=== PATIENT | female | born 1950 | race Caucasian/White ===

== ENCOUNTER → 2017-05-21 | Outpatient (POV) | payer OTHER | LOC: OUTPT 00:01 | PROVIDERS: ATTEND Otolaryngology | DX: R42 Dizziness and giddiness (principal) | CPT/HCPCS: 92557; 92567 ==

== ENCOUNTER 2017-08-22 07:13 | Outpatient (CLI) ==
--- NOTE | 2017-08-25 11:47 | ECHO2D ---
Date of Exam: 08/22/17 Ordering Physician: RODOLFO ORDONEZ Room #: OP Reason for Echo: DYSPNEA M-Mode Normal Adult Results LV Dimensions Normal Adult Results AoV Opening excursions >1.6 >1.6 LVEDD-base- 3.5-5.8 3.2 Ao root dimensions 2.0-3.7 3.4 LVESD-base- 3.1-4.6 L. Atrium dimensions 1.9-3.8 4.0 Post. Wall thickness 0.8-1.1 1.2 IV septum (thickness) 0.7-1.2 1.2 Post. Wall excursion 0.72-1.3 NORMAL Septal motion NORMAL Systolic motion R. Ventricular cavity 1.5-2.0 3.0 LVEF 60% 64% Paradoxical septal wall motion NORMALA 2-D : NORMAL LEFT VENTRICULAR CONTRACTILITY--BORDERLINE ENLARGED LEFT ATRIAL CAVITY--NORMAL VALVES, ENLARGED RIGHT VENTRICLE CAVITY, NO EFFUSION, NO THROMBUS M-MODE: MV: NORMAL AV: NORMAL TV: NORMAL PV: CHAMBER SIZE: BORDERLINE LEFT ATRIAL CAVITY, RIGHT VENTRICLE CAVITY ENLARGEMENT WALL MOTION: NORMAL PERICARDIUM: NORMAL INTERPRETATION: 1. BORDERLINE LEFT VENTRICULAR HYPERTROPHY WITH BORDERLINE LEFT ATRIAL CAVITY ENLARGEMENT 2. NORMAL LEFT VENTRICULAR CONTRACTILITY 3. ENLARGED RIGHT VENTRICULAR CAVITY MTDD
== END 2017-08-22 07:14 | disposition home or self-care (01) ==
LOC: CAR 07:13
PROVIDERS: ATTEND Internal Medicine
DX: R06.00 Dyspnea, unspecified (principal)

== ENCOUNTER 2017-08-29 07:23 | Outpatient (CLI) ==
--- NOTE | 2017-08-29 09:28 | CT ---
EXAM: CT of the chest with contrast History: Short of breath, paralyzed right-sided diaphragm. Comparison: Chest radiograph 01/21/2016 Technique: Multiplanar CT images through the thorax were obtained following administration of IV cont rast Findings: Heart size is within normal limits. No pericardial effusion. Great vessels are unremarka ble. No pathologically enlarged thoracic lymph nodes. Calcified granulomas seen within the thorax. Significantly elevated right hemidiaphragm. There is chronic compressive atelectasis within the righ t lower lung. No evidence for pneumonia. No pleural fluid and no pneumothorax. No suspicious lung nodules or lung masses. Within the visualized upper abdomen, status post cholecystectomy. Calcified granulomas within the sp steve. The liver might be fatty. No acute osseous abnormalities. Impression: 1. No acute intrathoracic process. 2. Significantly elevated right hemidiaphragm with associated chronic compressive atelectasis in the right lower lung. 3. Old granulomatous disease. 4. Possible fatty liver
== END 2017-08-29 07:24 | disposition home or self-care (01) ==
LOC: RAD 07:23
PROVIDERS: ATTEND Internal Medicine
DX: I51.7 Cardiomegaly (principal)

== ENCOUNTER 2017-12-04 08:40 | Outpatient (CLI) ==
--- NOTE | 2017-12-05 12:00 | MAMMO ---
EXAM: Bilateral digital screening mammogram (2-D and 3-D) History: Screening Comparison: Bilateral mammogram 11/04/2012 Findings: MLO and CC views of bilateral breasts demonstrate scattered fibroglandular breast parenchy ma. CAD was reviewed by the radiologist. Tomosynthesis was performed. There are no dominant masses , no suspicious microcalcifications and no architectural distortions Impression: Stable negative mammogram. Recommend followup routine screening mammography in 1 year. BIRADS 1
== END 2017-12-04 08:41 | disposition home or self-care (01) ==
LOC: RAD 08:40
PROVIDERS: ATTEND Nurse Practitioner
DX: Z12.31 Encounter for screening mammogram for malignant neoplasm of breast (principal)
CPT/HCPCS: 77067

== ENCOUNTER 2018-03-27 15:11 | Outpatient (CLI) | payer OTHER | END 2018-03-27 15:12 | disposition home or self-care (01) | LOC: LAB 15:11 | PROVIDERS: ATTEND Internal Medicine | DX: J44.9 Chronic obstructive pulmonary disease, unspecified (principal); M06.9 Rheumatoid arthritis, unspecified | CPT/HCPCS: 36415; 80048; 85025 ==

== ENCOUNTER 2018-06-16 15:59 | Outpatient (CLI) | END 2018-06-16 16:00 | disposition home or self-care (01) | LOC: LAB 15:59 | PROVIDERS: ATTEND Nurse Practitioner Family | DX: E55.9 Vitamin D deficiency, unspecified (principal); M81.0 Age-related osteoporosis without current pathological fracture | CPT/HCPCS: 36415; 82306; 82310; 83735; 84100 ==

== ENCOUNTER 2018-10-12 10:37 | Outpatient (CLI) | END 2018-10-12 10:38 | disposition home or self-care (01) | LOC: LAB 10:37 | PROVIDERS: ATTEND Internal Medicine Rheumatology | DX: M05.79 Rheumatoid arthritis with rheumatoid factor of multiple sites without organ or systems involvement (principal) | CPT/HCPCS: 36415; 82040; 82565; 84460; 85025; 86140 ==

== ENCOUNTER 2018-11-06 13:40 | Outpatient (CLI) | END 2018-11-06 13:41 | disposition home or self-care (01) | LOC: LAB 13:40 | PROVIDERS: ATTEND Internal Medicine Rheumatology | DX: M05.79 Rheumatoid arthritis with rheumatoid factor of multiple sites without organ or systems involvement (principal) | CPT/HCPCS: 36415; 82040; 82565; 84460; 85025; 86140 ==

== ENCOUNTER 2018-12-15 13:30 | Outpatient (CLI) | END 2018-12-15 13:31 | disposition home or self-care (01) | LOC: LAB 13:30 | PROVIDERS: ATTEND Nurse Practitioner Family | DX: M81.0 Age-related osteoporosis without current pathological fracture (principal) | CPT/HCPCS: 36415; 82306; 82310; 83735; 84100 ==

== ENCOUNTER 2023-08-27 14:58 | Observation (INO) ==
[2023-08-27] MEDS ORDERED: ALBUTEROL 0.083% NEB NEB ONE (15:19)
[2023-08-27] MEDS ORDERED: LACTATED RINGERS 1,000 ML IV STA (15:19)
[2023-08-27 15:37] LABS: BASOPHILS % (AUTO) 0.3 % (0.0-3.0); EOSINOPHILS # (AUTO) 0.1 K/ul (0.0-0.7); EOSINOPHILS % (AUTO) 1.6 % (0.0-7.0); HEMATOCRIT 34.9 % (37.0-47.0); HEMOGLOBIN 10.8 g/dl (12.0-16.0); IMMATURE GRANULOCYTE # (AUTO) 0.1 (0.0-1.0); IMMATURE GRANULOCYTE % (AUTO) 1.2 % (0.0-5.0); LYMPHOCYTES # (AUTO) 0.6 K/uL (0.60-3.4); LYMPHOCYTES % (AUTO) 8.2 (10.0-50.0); MEAN CORPUSCULAR HEMOGLOBIN 29.5 pg (27.0-31.0); MEAN CORPUSCULAR HGB CONC 30.9 (31.8-35.4); MEAN CORPUSCULAR VOLUME 95.4 fl (81.0-99.0); MONOCYTES # (AUTO) 0.9 K/uL (0.4-2.0); MONOCYTES % (AUTO) 12.5 (0-10); NEUTROPHILS # (AUTO) 5.2 K/ul (2.0-6.9); NEUTROPHILS % (AUTO) 76.2 % (42.2-75.2); PLATELET COUNT 287 10^3/uL (140-440); RDW COEFFICIENT OF VARIATION 16.8 % (11.6-14.8); RED BLOOD COUNT 3.66 10^6/ul (4.20-5.40); WHITE BLOOD COUNT 6.81 K/ul (4.6-10.2)
[2023-08-27 15:47] LABS: ALANINE AMINOTRANSFERASE 16.9 U/L (0-35); ALBUMIN 3.72 g/dL (3.5-5.0); ALKALINE PHOSPHATASE 89.6 U/L (53-141); ASPARTATE AMINO TRANSFERASE 25.9 U/L (14-36); BILIRUBIN,TOTAL 0.59 mg/dL (0.2-1.3); BLOOD UREA NITROGEN 9.1 mg/dL (7-17); CALCIUM 8.51 mg/dL (8.4-10.2); CARBON DIOXIDE 29.1 mmol/L (22-30.0); CHLORIDE 94.3 mmol/L (98-107); GLUCOSE 94.8 mg/dL (74-106); POTASSIUM 3.74 mmol/L (3.5-5.1); SODIUM 129.3 mmol/L (134.5-145); TOTAL PROTEIN 7.15 g/dL (6.3-8.2)
[2023-08-27 15:54] LABS: SARS COV-2 RNA RAPID NAAT NEGATIVE (NEGATIVE)
[2023-08-27 15:55] LABS: ANISOCYTOSIS 3+ (NOT PRESENT); HYPOCHROMASIA 3+ (NOT PRESENT); MICROCYTOSIS 2+ (NOT PRESENT)
[2023-08-27 16:00] LABS: TROPONIN I < 0.012 ng/ml (0.0000-0.120)
[2023-08-27] MEDS ORDERED: ROCEPHIN 1 GM/50 ML D5W 1 GM/50 ML BAG IV ONE (16:00)
[2023-08-27] MEDS ORDERED: ZITHROMAX 500 MG in SODIUM CHLORIDE 250 ML IV ONE (16:01)
--- NOTE | 2023-08-27 16:49 | ED.PDOC ---
General ED Provider: Dr. EMILY LAM MD Chief Complaint: Weakness Stated Complaint: 73 years old female who came to the ER from home for shortness of breath. Patient has history of right hemidiaphragm paralysis she was seen by her primary care doctor has been getting antibiotics and steroids for respiratory infection with no improvement. Patient went again to her primary doctor today and he sent her to the ED for further workup and labs. Patient reported shortness of breath she wears 2 L of home oxygen but has not been able to carry her portable oxygen so she came to the ER without it. Patient has been feeling generalized weakness along with shortness of breath. Denies any fever, chest pain, changes in bowel or urine. Time Seen by Provider: 08/27/23 15:11 Information Source: Patient Primary Care Provider: BROOKE CAGE Nursing and Triage Documentation Reviewed and Agree: Yes Review of Systems Review Of Systems Constitutional: Reports Malaise and Weakness All Other Systems: Reviewed and Negative [facility] Medical History (Updated 08/27/23 @ 20:23 by EMILY LAM MD) Tremors of nervous system R25.1 - Tremor, unspecified (ICD-10) Hypertension I10 - Essential (primary) hypertension (ICD-10) Chronic obstructive pulmonary disease J44.9 - Chronic obstructive pulmonary disease, unspecified (ICD-10) Rheumatoid arthritis M06.9 - Rheumatoid arthritis, unspecified (ICD-10) Family History Mother Dementia Myocardial infarction Cerebrovascular accident BROTHER Parkinson disease Grandfather/Grandmother Cancer Grandfather/Grandmother Cancer Social History Smoking and tobacco status: Never smoker Alcohol intake: never Substance use type: does not use Jazzy/jewish: NONE Current occupational status: retired Seatbelt use: always Working smoke detector in home: Yes Fire extinguisher in home: Yes Carbon monoxide detector in home: Yes Surgical History History of joint surgery Z98.890 - Other specified postprocedural states (ICD-10) History of musculoskeletal system surgery Z98.890 - Other specified postprocedural states (ICD-10) History of tubal ligation Z98.51 - Tubal ligation status (ICD-10) Status post cholecystectomy Z90.49 - Acquired absence of other specified parts of digestive tract (ICD- 10) Female Reproductive History Menstrual Hx Hysterectomy: No Hx Tubal Ligation: Yes Physical Exam Physical Exam Appearance: Reports Ill-appearing Ill-appearing: Mild Pain Distress: None Eyes: Reports JUDITH and EOMI ENT: Reports Ears normal and Nose normal Neck: Supple Respiratory: Reports Airway patent and Rhonchi (Decreased breath sounds on the right lower lung lobe with moderate rhonchi) Cardiovascular: Reports RRR, Pulses normal, No rub and No murmur GI/: Reports Soft, Nontender and No masses Musculoskeletal: Reports Normal strength, ROM intact and No edema Skin: Reports Warm and Normal color Neurological: Reports Sensation intact and Motor intact Psychiatric: Reports Affect appropriate Interpretation EKG Interpretation EKG Interpretation By: ED Physician Time of EKG #1: 15:40 Rate: Tachy Rhythm: Sinus Ectopy: None [place]: Left ST Segment: Normal Interpretation: No signs of acute ischemia Critical Care Note Critical Care Note Total Critical Care Time (mins): 0 Course Course 08/27/23 15:29 08/27/23 15:29 Orders, Labs, Meds: Lab Review 08/27/23 08/27/23 08/27/23 15:29 15:35 16:20 WBC 6.81 RBC 3.66 L Hgb 10.8 L Hct 34.9 L MCV 95.4 MCH 29.5 MCHC 30.9 L RDW Coeff of Carley 16.8 H Plt Count 287 Immature Gran % (Auto) 1.2 Neut % (Auto) 76.2 H Lymph % (Auto) 8.2 L [place] % (Auto) 12.5 H Eos % (Auto) 1.6 Baso % (Auto) 0.3 Neut # (Auto) 5.2 Lymph # (Auto) 0.6 [place] # (Auto) 0.9 Eos # (Auto) 0.1 Baso # (Auto) 0.0 Immature Gran # (Auto) 0.1 Hypochromasia 3+ Anisocytosis 3+ Microcytosis 2+ Sodium 129.3 L Potassium 3.74 Chloride 94.3 L Carbon Dioxide 29.1 Anion Gap 9.64 BUN 9.1 Creatinine 0.70 Estimated GFR (MDRD) 82.00 BUN/Creatinine Ratio 13.00 Glucose 94.8 Calcium 8.51 Total Bilirubin 0.59 AST 25.9 ALT 16.9 Alkaline Phosphatase 89.6 Troponin I < 0.012 NT-Pro-B Natriuret Pep 21 Total Protein 7.15 Albumin 3.72 Globulin 3.43 Albumin/Globulin Ratio 1.08 Urine Color Yellow Urine Clarity Clear Urine pH 6.0 Ur Specific [place] 1.020 Urine Protein Negative Urine Glucose (UA) Negative Urine Ketones 2+ H Urine Blood Negative Urine Nitrite Negative Urine Bilirubin Negative Urine Urobilinogen 0.2 Ur Leukocyte Esterase Negative SARS CoV-2 RNA Rapid THIAGO Negative Orders Category Date Time Status ADMIT OBSERVATION [PLACE PATIENT OBSERVATION] .TO ADMISSION 08/27/23 18:28 Active MEDSURG (MONITORED BED) EKG-(ED ONLY) Stat CARDIO 08/27/23 15:26 Completed NEBULIZER TREATMENT Stat CARDIO 08/27/23 15:20 Completed IV ACCESS ONCE CARE 08/27/23 15:19 Active TELEMETRY MONITORING TELE CARE 08/27/23 18:29 Active Monitor [ED WELDER TOOL AND DIE APPLIED] .ONCE EMERGENCY 08/27/23 15:19 Active CBC W/ AUTO DIFF Stat LAB 08/27/23 15:29 Completed CMP [COMPREHENSIVE METABOLIC PANEL] Stat LAB 08/27/23 15:29 Completed COVID [SARS COV-2 RNA RAPID THIAGO] Stat LAB 08/27/23 15:35 Completed NT-PROBNP(ED) Stat LAB 08/27/23 15:29 Completed RBC MORPHOLOGY Stat LAB 08/27/23 15:29 Completed TROPONIN I Stat LAB 08/27/23 15:29 Completed URINALYSIS C & S IF INDICATED Stat LAB 08/27/23 16:20 Completed Albuterol Sulfate 0.083% Neb [Albuterol 0.083% Neb] Meds 08/27/23 15:19 Discontinued 2.5 mg NEB ONCE ONE Azithromycin Inj [Zithromax] 500 mg Meds 08/27/23 16:01 Discontinued 0.9 % Sodium Chloride [Sodium Chloride] 250 ml IV ONCE Ceftriaxone/D5w 1 gm Premix [Rocephin 1 gm/50 ml D5w] Meds 08/27/23 16:00 Discontinued 1 gm in 50 ml IV ONCE Hydralazine HCl Meds 08/27/23 18:08 Discontinued 10 mg IVP ONCE STA Ringers Lactated Solution [Lactated Ringers] 1,000 ml Meds 08/27/23 15:19 Discontinued IV BOLUS CXR [CHEST, 1V AP ONLY] Stat RADS 08/27/23 15:19 Completed Medications Discontinued Medications Generic Name Dose Route Start Last Admin Trade Name Raman PRN Reason Stop Dose Admin Albuterol Sulfate 2.5 mg 08/27/23 15:19 08/27/23 15:35 Albuterol Sulfate 0.083% Vial.Neb NEB 08/27/23 15:20 2.5 mg ONCE ONE Administration Hydralazine HCl 10 mg 08/27/23 18:08 08/27/23 18:22 Hydralazine Hcl 20 Mg/Ml Sdv IVP 08/27/23 18:09 10 mg ONCE STA Administration Lactated Ringer's 1,000 mls @ 1,000 mls/hr 08/27/23 15:19 08/27/23 17:06 Lactated Ringers IV 08/27/23 16:18 Infused BOLUS STA Infusion CEFTRIAXONE/D5W 1 GM PREMIX 1 gm in 50 mls @ 100 mls/hr 08/27/23 16:00 08/27/23 16:29 Rocephin 1 Gm/50 Ml D5w IV 08/27/23 16:29 100 mls/hr ONCE ONE Administration Azithromycin 500 mg/ Sodium 250 mls @ 250 mls/hr 08/27/23 16:01 08/27/23 17:02 Chloride IV 08/27/23 17:00 250 mls/hr ONCE ONE Administration Vital Signs: Temp Pulse Resp BP Pulse Ox O2 Flow Rate 08/27/23 15:56 2 08/27/23 14:59 98.4 F 106 H 20 144/77 H 94 L Chest x-ray is strong right lower lobe atelectasis and possible pneumonia patient was given 1 dose of azithromycin 500 mg and 1 dose of Rocephin 1 g IV CMP showed hyponatremia sodium 129 patient was given 1 L of lactated Ringer bolus. Called hospitalist Ray and discussed the patient case with her and she agreed to admit the patient under our services for IV antibiotics and IV fluids. Discharge Plan Discharge Patient Disposition: PLACED OBSERVATION Discharge Problem: Pneumonia, Acute hyponatremia Did you review [place] EXECUTIVE PERSONAL ASSISTANT for ALL controlled substances?: Not Applicable ED Provider: EMILY LAM Condition: Stable Physician Progress Note: []
[2023-08-27 17:00] LABS: BILIRUBIN,URINE Negative (NEGATIVE); CLARITY,URINE Clear (CLEAR); COLOR,URINE Yellow (YELLOW); GLUCOSE, URINE (UA) Negative (NEGATIVE); KETONES,URINE 2+ (NEGATIVE); LEUKOCYTE ESTERASE ,URINE Negative (NEGATIVE); NITRITE,URINE Negative (NEGATIVE); PROTEIN,URINE Negative (NEGATIVE); URINE, BLOOD Negative (NEGATIVE); UROBILINOGEN,URINE 0.2 (0.2)
[2023-08-27] MEDS ORDERED: HYDRALAZINE HCL IVP STA (18:08)
--- NOTE | 2023-08-27 19:44 | DI ---
EXAM: FRONTAL VIEW OF THE CHEST. HISTORY: Shortness of breath. COMPARISON: Chest radiograph 08/26/2023. FINDINGS: Asymmetric elevation right hemidiaphragm. Band-like opacities at the right base. Normal heart size. Atherosclerotic calcifications of the aorta. No new airspace opacities. No visible pleural effusion or pneumothorax. Post cholecystectomy. Right shoulder arthroplasty hardware. Diffuse osseous demineralization. Degenerative changes of the spine and shoulders. IMPRESSION: Stable asymmetric elevation right hemidiaphragm and right basilar atelectasis. Calcified atherosclerosis.
[2023-08-27] MEDS ORDERED: ALBUTEROL 0.083% NEB NEB PRN (20:35)
[2023-08-27 21:33] VITALS: BMI 27.5
[2023-08-27] MEDS: SOLU-MEDROL 40 MG IVP SCH (21:46)
[2023-08-27] MEDS ORDERED: NEURONTIN PO PRN (22:08)
[2023-08-27] MEDS ORDERED: ASTELIN 0.1% NAS SCH (22:30)
[2023-08-27] MEDS: DUONEB NEB SCH (22:33)
[2023-08-28] MEDS: DUONEB NEB SCH ×6 (01:39→21:43)
[2023-08-28] MEDS: SOLU-MEDROL 40 MG IVP SCH ×3 (05:29→21:30)
[2023-08-28 06:15] LABS: BASOPHILS % (AUTO) 0.3 % (0.0-3.0); HEMATOCRIT 31.9 % (37.0-47.0); IMMATURE GRANULOCYTE # (AUTO) 0.1 (0.0-1.0); IMMATURE GRANULOCYTE % (AUTO) 1.3 % (0.0-5.0); LYMPHOCYTES # (AUTO) 0.3 K/uL (0.60-3.4); LYMPHOCYTES % (AUTO) 7.5 (10.0-50.0); MEAN CORPUSCULAR HEMOGLOBIN 29.4 pg (27.0-31.0); MEAN CORPUSCULAR HGB CONC 31.3 (31.8-35.4); MEAN CORPUSCULAR VOLUME 93.8 fl (81.0-99.0); MONOCYTES # (AUTO) 0.2 K/uL (0.4-2.0); MONOCYTES % (AUTO) 3.8 (0-10); NEUTROPHILS # (AUTO) 3.5 K/ul (2.0-6.9); NEUTROPHILS % (AUTO) 87.1 % (42.2-75.2); PLATELET COUNT 286 10^3/uL (140-440)
[2023-08-28 06:29] LABS: ALANINE AMINOTRANSFERASE 15.3 U/L (0-35); ALBUMIN 3.32 g/dL (3.5-5.0); ALKALINE PHOSPHATASE 83.4 U/L (53-141); ASPARTATE AMINO TRANSFERASE 20.2 U/L (14-36); BILIRUBIN,TOTAL 0.28 mg/dL (0.2-1.3); BLOOD UREA NITROGEN 6.9 mg/dL (7-17); CALCIUM 8.36 mg/dL (8.4-10.2); CARBON DIOXIDE 28.2 mmol/L (22-30.0); CHLORIDE 98.3 mmol/L (98-107); CREATININE 0.6 mg/dL (0.60-1.30); GLUCOSE 178.7 mg/dL (74-106); POTASSIUM 4.13 mmol/L (3.5-5.1); SODIUM 130.7 mmol/L (134.5-145); TOTAL PROTEIN 6.46 g/dL (6.3-8.2)
[2023-08-28] MEDS ORDERED: ALBUTEROL 0.083% NEB NEB SCH (09:00)
[2023-08-28] MEDS: ASTELIN 0.1% NAS SCH ×2 (09:09→20:55)
[2023-08-28] MEDS: ARAVA PO SCH (09:09)
[2023-08-28] MEDS: ROCEPHIN 1 GM/50 ML D5W 1 GM/50 ML BAG IV SCH (09:09)
[2023-08-28] MEDS: CELEBREX PO SCH (09:10)
[2023-08-28] MEDS: FOLIC ACID PO SCH (09:10)
[2023-08-28] MEDS: PRILOSEC PO SCH ×2 (09:11→16:50)
[2023-08-28] MEDS: ZITHROMAX 500 MG in SODIUM CHLORIDE 250 ML IV SCH (10:00)
--- NOTE | 2023-08-28 12:50 | PCM ---
Date of Service Date Seen by Provider: 08/28/23 Time Seen by Provider: 08:30 Admit Day/Time Admission Date: 08/27/23 Reason for Admission Chief Complaint: HYPONATREMIA, PNEUMONIA Hospital Provider Hospital Provider: EDEL GOEL, [facility] [place] Primary Care Physician Primary Care Physician: BROOKE CAGE History of Present Illness History of Present Illness: 73 yo female presented to the ER after visiting her PCP office for weakness. Patient states that she was treated for pneumonia approximately 1 week ago with levaquin and prednisone. Does not feel that it has helped. Has no energy and isn't breathing as well as she normally does. 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 Denies any fever, chills, N/V/D, chest pain. Case Discussed With Case Discussed With: Patient's case was discussed with the ER Physicians, Dr. Bartholomew. 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) Tremors of nervous system R25.1 - Tremor, unspecified (ICD-10) Hypertension I10 - Essential (primary) hypertension (ICD-10) Chronic obstructive pulmonary disease J44.9 - Chronic obstructive pulmonary disease, unspecified (ICD-10) Rheumatoid arthritis M06.9 - Rheumatoid arthritis, unspecified (ICD-10) Surgical History History of hip surgery Z98.890 - Other specified postprocedural states (ICD-10) History of shoulder surgery Z98.890 - Other specified postprocedural states (ICD-10) History of hysterectomy Z90.710 - Acquired absence of both cervix and uterus (ICD-10) History of musculoskeletal system surgery back Z98.890 - Other specified postprocedural states (ICD-10) History of tubal ligation Z98.51 - Tubal ligation status (ICD-10) History of joint surgery Right hip replacement Z98.890 - Other specified postprocedural states (ICD-10) Status post cholecystectomy Z90.49 - Acquired absence of other specified parts of digestive tract (ICD- 10) Family History Mother Dementia Myocardial infarction Cerebrovascular accident BROTHER Parkinson disease Grandfather/Grandmother Cancer Grandfather/Grandmother Cancer Social History Smoking and tobacco status: Never smoker Alcohol intake: never Substance use type: does not use Jazzy/zoroastrianism: NONE Current occupational status: retired Seatbelt use: always Working smoke detector in home: Yes Fire extinguisher in home: Yes Carbon monoxide detector in home: Yes Allergies Allergies Allergy/AdvReac Type Severity Reaction Status Date / Time Penicillins Allergy Severe rash Verified 08/27/23 15:18 Current Medications Home Medications folic acid 1 mg tablet 1 mg PO DAILY 11/10/14 [History Confirmed 08/27/23 Last Taken 08/23/23] methotrexate sodium 2.5 mg tablet 2.5 mg PO 8 pills once a week 11/10/14 [History Confirmed 08/27/23 Last Taken 08/22/23] amitriptyline 10 mg tablet 25 mg PO BEDTIME 05/14/16 [History Confirmed 08/27/23 Last Taken 08/21/23] gabapentin 300 mg capsule 300 mg PO TID PRN Pain 05/14/16 [History Confirmed 08/27/23 Last Taken 08/23/23] omeprazole 20 mg capsule,delayed release 20 mg PO BID 08/05/16 [History Confirmed 08/27/23 Last Taken 08/04/16] leflunomide 10 mg tablet 10 mg PO DAILY 11/01/19 [History Confirmed 08/27/23 Last Taken 08/23/23] acetaminophen 500 mg tablet 500 mg PO Q4H PRN Pain 05/29/20 [History Confirmed 08/27/23 Last Taken 08/23/23] albuterol sulfate 2.5 mg/3 mL (0.083 %) solution for nebulization 2.5 mg inhalation BID 05/29/20 [History Confirmed 08/27/23 Last Taken 08/25/23] albuterol sulfate 90 mcg/actuation aerosol inhaler (Ventolin HFA) 2 puff inhalation PRN PRN shortness of air 05/29/20 [History Confirmed 08/27/23 Last Taken 08/23/23] docusate sodium 100 mg capsule (Stool Softener) 100 mg PO DAILY PRN Constipation 05/29/20 [History Confirmed 08/27/23 Last Taken 08/20/23] albuterol sulfate 90 mcg/actuation aerosol inhaler (Ventolin HFA) 2 puff inhalation Q4-6H PRN shortness of breath or wheezing #8.5 grams 07/04/20 [Rx Confirmed 08/27/23 Last Taken Unknown] azelastine 137 mcg (0.1 %) nasal spray aerosol 1 spray intranasal Q12H 03/27/23 [History Confirmed 08/27/23 Last Taken 08/26/23] celecoxib 100 mg capsule 100 mg PO DAILY 08/27/23 [History Confirmed 08/27/23 Last Taken 08/25/23] Home Albuterol Sulfate (Albuterol Sulfate 0.083% Vial.Neb) 2.5 mg NEB RTQ4H PRN PRN Reason: Wheezing Albuterol Sulfate (Albuterol Sulfate 0.083% Vial.Neb) 2.5 mg NEB BID [facility] Last Admin: 08/28/23 10:23 Dose: Not Given Albuterol/Ipratropium (Ipratropium/Albuterol Vial.Neb) 3 ml NEB RTQ4H [facility] Last Admin: 08/28/23 10:14 Dose: 3 ml Amitriptyline HCl (Amitriptyline Hcl 25 Mg Tablet) 25 mg PO BEDTIME [facility] Azelastine HCl (Azelastine Hcl 30 Ml Nasal [place]) 1 spray OBI Q12HR [facility] Last Admin: 08/28/23 09:09 Dose: 1 spray Celecoxib (Celecoxib 100 Mg Capsule) 100 mg PO DAILYWM2 [facility] Last Admin: 08/28/23 09:10 Dose: 100 mg Folic Acid (Folic Acid 1 Mg Tablet) 1 mg PO DAILY [facility] Last Admin: 08/28/23 09:10 Dose: 1 mg Gabapentin (Gabapentin 300 Mg Capsule) 300 mg PO TID PRN PRN Reason: Pain CEFTRIAXONE/D5W 1 GM PREMIX (Rocephin 1 Gm/50 Ml D5w) 1 gm in 50 mls @ 100 mls/hr IV DAILY [facility] Stop: 08/31/23 08:59 Last Admin: 08/28/23 09:09 Dose: 100 mls/hr Azithromycin 500 mg/ Sodium (Chloride) 250 mls @ 250 mls/hr IV DAILY [facility] Stop: 08/30/23 08:59 Last Admin: 08/28/23 10:00 Dose: 250 mls/hr Sodium Chloride (Sodium Chloride) 1,000 mls @ 100 mls/hr IV .Q10H [facility] Leflunomide (Leflunomide 20 Mg Tablet) 10 mg PO DAILY [facility] Last Admin: 08/28/23 09:09 Dose: 10 mg Methylprednisolone Sodium Succinate (Methylprednisolone Sod Succ/Pf 40 Mg/Ml Vial) 40 mg IVP Q8HR [facility] Last Admin: 08/28/23 05:29 Dose: 40 mg Omeprazole (Omeprazole 20 Mg Capsule.Dr) 20 mg PO BIDAC2 [facility] Last Admin: 08/28/23 09:11 Dose: 20 mg Sodium Chloride (0.9% Sodium Chloride 10 Ml Disp.Syrin) 1 syr IVF Q8HR [facility] Last Admin: 08/28/23 05:29 Dose: 1 syr Discontinued Medications Albuterol Sulfate (Albuterol Sulfate 0.083% Vial.Neb) 2.5 mg NEB ONCE ONE Stop: 08/27/23 15:20 Last Admin: 08/27/23 15:35 Dose: 2.5 mg Amitriptyline HCl (Amitriptyline Hcl 10 Mg Tablet) 25 mg PO BEDTIME [facility] Azelastine HCl (Azelastine Hcl 30 Ml Nasal [place]) 1 spray OBI Q12H [facility] Last Admin: 08/27/23 23:06 Dose: 1 spray Hydralazine HCl (Hydralazine Hcl 20 Mg/Ml Sdv) 10 mg IVP ONCE STA Stop: 08/27/23 18:09 Last Admin: 08/27/23 18:22 Dose: 10 mg Lactated Ringer's (Lactated Ringers) 1,000 mls @ 1,000 mls/hr IV BOLUS STA Stop: 08/27/23 16:18 Last Infusion: 08/27/23 17:06 Dose: Infused CEFTRIAXONE/D5W 1 GM PREMIX (Rocephin 1 Gm/50 Ml D5w) 1 gm in 50 mls @ 100 mls/hr IV ONCE ONE Stop: 08/27/23 16:29 Last Admin: 08/27/23 16:29 Dose: 100 mls/hr Azithromycin 500 mg/ Sodium (Chloride) 250 mls @ 250 mls/hr IV ONCE ONE Stop: 08/27/23 17:00 Last Admin: 08/27/23 17:02 Dose: 250 mls/hr Review of Systems Constitutional: Reports Fatigue and Weakness Head: Reports Normocephalic Eyes: Reports No symptoms Ears: Reports No symptoms Nose: Reports No symptoms Mouth: Reports No symptoms Throat: Reports No symptoms Cardiovascular: Reports No symptoms Respiratory: Reports Cough and Shortness of air Gastrointestinal: Reports No symptoms Genitourinary: Reports No Symptoms Musculoskeletal: Reports No symptoms Endocrine: Reports No symptoms Hematology: Reports No symptoms Neurological: Reports No symptoms and Weakness Psychiatric: Reports No symptoms Physical examination Most Recent Vital Signs: Most Recent Vital Signs Temperature 98 F 08/28/23 10:00 Temperature Source Oral 08/28/23 10:00 Temperature Source Infrared 08/27/23 14:59 Pulse Rate 94 08/28/23 10:00 Respiratory Rate 16 08/28/23 10:00 Blood Pressure 117/71 08/28/23 10:00 Blood Pressure Mean 86 08/28/23 10:00 Blood Pressure Left Arm 150/80 08/27/23 20:32 Blood Pressure Location Left Arm 08/28/23 10:00 Blood Pressure Position Sitting 08/28/23 10:00 O2 Sat by Pulse Oximetry 95 08/28/23 10:00 Oxygen Delivery Method Nasal Cannula 08/28/23 12:39 Oxygen Flow Rate 2 08/28/23 10:00 Fraction of Inspired Oxygen (FIO2) 2 08/27/23 20:32 Height 5 ft 2 in 08/27/23 20:32 Weight 150 lb 9 oz 08/27/23 20:32 Telemetry Type Remote Telemetry 08/28/23 07:00 Telemetry Monitoring Continues 08/28/23 07:00 Telemetry Heart Rate 120 H 08/28/23 07:00 Telemetry SPO2 95 08/28/23 01:00 EKG SD Interval 0.16 08/28/23 07:00 EKG QRS Interval 0.06 08/28/23 07:[address] 08/28/23 07:00 Appearance: Positive No Apparent Distress, Alert and Oriented x3 and Ill- Appearing Skin: Positive Warm HEENT: Positive Normocephalic and PERRLA Neck: Positive Supple and Midline Trachea Chest/Lungs: Positive Symmetrical With Equal Breath Sounds, Rhonci (LLL) and Other (diminished lung sounds to R) Heart: Positive RRR and Pulses Normal GI/: Positive Soft, Nontender and Bowel Sounds Normal Extremities: Positive Intact Peripheral Pulses, Stable Joints Without Laxity and Good ROM in All Joints Neurological: Positive Sensation Intact, Motor intact, Reflexes Intact, Alert, Oriented and Muscle Strength 5/5 in Upper and Lower Extremities Bilaterally Labs This Visit Labs This Visit: Labs This Visit 08/27/23 08/27/23 08/27/23 15:29 15:35 16:20 WBC 6.81 RBC 3.66 L Hgb 10.8 L Hct 34.9 L MCV 95.4 MCH 29.5 MCHC 30.9 L RDW Coeff of Carley 16.8 H Plt Count 287 Immature Gran % (Auto) 1.2 Neut % (Auto) 76.2 H Lymph % (Auto) 8.2 L [place] % (Auto) 12.5 H Eos % (Auto) 1.6 Baso % (Auto) 0.3 Neut # (Auto) 5.2 Lymph # (Auto) 0.6 [place] # (Auto) 0.9 Eos # (Auto) 0.1 Baso # (Auto) 0.0 Immature Gran # (Auto) 0.1 Hypochromasia 3+ Anisocytosis 3+ Microcytosis 2+ Sodium 129.3 L Potassium 3.74 Chloride 94.3 L Carbon Dioxide 29.1 Anion Gap 9.64 BUN 9.1 Creatinine 0.70 Estimated GFR (MDRD) 82.00 BUN/Creatinine Ratio 13.00 Glucose 94.8 Calcium 8.51 Total Bilirubin 0.59 AST 25.9 ALT 16.9 Alkaline Phosphatase 89.6 Troponin I < 0.012 NT-Pro-B Natriuret Pep 21 Total Protein 7.15 Albumin 3.72 Globulin 3.43 Albumin/Globulin Ratio 1.08 Urine Color Yellow Urine Clarity Clear Urine pH 6.0 Ur Specific [place] 1.020 Urine Protein Negative Urine Glucose (UA) Negative Urine Ketones 2+ H Urine Blood Negative Urine Nitrite Negative Urine Bilirubin Negative Urine Urobilinogen 0.2 Ur Leukocyte Esterase Negative SARS CoV-2 RNA Rapid THIAGO Negative 08/28/23 05:23 WBC 4.00 L RBC 3.40 L Hgb 10.0 L Hct 31.9 L MCV 93.8 MCH 29.4 MCHC 31.3 L RDW Coeff of Carley 17.0 H Plt Count 286 Immature Gran % (Auto) 1.3 Neut % (Auto) 87.1 H Lymph % (Auto) 7.5 L [place] % (Auto) 3.8 Eos % (Auto) 0.0 Baso % (Auto) 0.3 Neut # (Auto) 3.5 Lymph # (Auto) 0.3 L [place] # (Auto) 0.2 L Eos # (Auto) 0.0 Baso # (Auto) 0.0 Immature Gran # (Auto) 0.1 Hypochromasia Anisocytosis Microcytosis Sodium 130.7 L Potassium 4.13 Chloride 98.3 Carbon Dioxide 28.2 Anion Gap 8.33 BUN 6.9 L Creatinine 0.60 Estimated GFR (MDRD) 98.00 BUN/Creatinine Ratio 11.50 Glucose 178.7 H D Calcium 8.36 L Total Bilirubin 0.28 AST 20.2 ALT 15.3 Alkaline Phosphatase 83.4 Troponin I NT-Pro-B Natriuret Pep Total Protein 6.46 Albumin 3.32 L Globulin 3.14 Albumin/Globulin Ratio 1.05 Urine Color Urine Clarity Urine pH Ur Specific [place] Urine Protein Urine Glucose (UA) Urine Ketones Urine Blood Urine Nitrite Urine Bilirubin Urine Urobilinogen Ur Leukocyte Esterase SARS CoV-2 RNA Rapid THIAGO Imaging Imaging: EXAM: FRONTAL VIEW OF THE CHEST. COMPARISON: Chest radiograph 08/26/2023. FINDINGS: Asymmetric elevation right hemidiaphragm. Band-like opacities at the right base. Normal heart size. Atherosclerotic calcifications of the aorta. No new airspace opacities. No visible pleural effusion or pneumothorax. Post cholecystectomy. Right shoulder arthroplasty hardware. Diffuse osseous demineralization. Degenerative changes of the spine and shoulders. IMPRESSION: Stable asymmetric elevation right hemidiaphragm and right basilar atelectasis. Calcified atherosclerosis. Review Statement Review Statement: I have independently reviewed and interpreted the labs/EKGs/imaging that were ordered by the ER provider. I have reviewed all outside records that are available currently in our EMR including imaging/notes/labs from previous visits. Plan Plan: 1. COPD Exacerbation - failed outpatient treatment, azith and rocephin, nebs, steroids, culture sputum 2. Symptomatic Hyponatremia - NS@100mL/hr, no medications affecting, likely due to not eating and drinking well 3. RA - chronic, continue home medications DVT Prophylaxis: Up with assist Time Spent: Greater than 80 minutes spent with patient, 50% of the time spent with this patient was devoted to counseling and coordination of care. [facility] Plannin minutes spent discussing advance care planning. Disposition: Admit to: Med/surg Observation Full Code Discussed Plan of Care with Dr. Rosana Nicolas Medications Medication Orders: Medications Ordered Category Date Time Status 0.9 % Sodium Chloride [Saline Flush] Meds 08/27/23 21:50 Active 1 syr IVF Q8HR Albuterol Sulfate 0.083% Neb [Albuterol 0.083% Neb] Meds 08/28/23 09:00 Hold 2.5 mg NEB BID Albuterol Sulfate 0.083% Neb [Albuterol 0.083% Neb] Meds 08/27/23 20:35 Active 2.5 mg NEB RTQ4H PRN Amitriptyline HCl [Elavil] Meds 08/28/23 21:00 Active 25 mg PO BEDTIME Azelastine HCl [Astelin 0.1%] Meds 08/28/23 09:00 Active 1 spray OBI Q12HR Azithromycin Inj [Zithromax] 500 mg Meds 08/28/23 09:00 Active 0.9 % Sodium Chloride [Sodium Chloride] 250 ml IV DAILY Ceftriaxone/D5w 1 gm Premix [Rocephin 1 gm/50 ml D5w] Meds 08/28/23 09:00 Active 1 gm in 50 ml IV DAILY Celecoxib [Celebrex] Meds 08/28/23 09:00 Active 100 mg PO DAILYWM2 Folic Acid Meds 08/28/23 09:00 Active 1 mg PO DAILY Gabapentin [Neurontin] Meds 08/27/23 22:08 Active 300 mg PO TID PRN Ipratropium/Albuterol Neb [Duoneb] Meds 08/27/23 22:00 Active 3 ml NEB RTQ4H Leflunomide [Arava] Meds 08/28/23 09:00 Active 10 mg PO DAILY Methylprednisolone Sod Succ/Pf [Solu-Medrol 40 mg] Meds 08/27/23 21:00 Active 40 mg IVP Q8HR Omeprazole [Prilosec] Meds 08/28/23 09:00 Active 20 mg PO BIDAC2
[2023-08-28] MEDS: SODIUM CHLORIDE 1,000 ML IV SCH ×2 (14:07→23:06)
[2023-08-28] MEDS ORDERED: ELAVIL PO SCH ×2 (21:00)
[2023-08-28 21:17] VITALS: RESP 18
[2023-08-29] MEDS: DUONEB NEB SCH ×3 (01:12→10:16)
[2023-08-29] MEDS: SOLU-MEDROL 40 MG IVP SCH ×2 (04:42→12:39)
[2023-08-29 05:19] VITALS: BP 124/70; PULSE 113; TEMP 97.6
[2023-08-29] MEDS: PRILOSEC PO SCH (05:23)
[2023-08-29 06:33] LABS: ALANINE AMINOTRANSFERASE 13.6 U/L (0-35); ALBUMIN 3.13 g/dL (3.5-5.0); ALKALINE PHOSPHATASE 74.2 U/L (53-141); ASPARTATE AMINO TRANSFERASE 17.2 U/L (14-36); BILIRUBIN,TOTAL 0.2 mg/dL (0.2-1.3); BLOOD UREA NITROGEN 7.6 mg/dL (7-17); CALCIUM 8.15 mg/dL (8.4-10.2); CARBON DIOXIDE 24.9 mmol/L (22-30.0); CHLORIDE 102.8 mmol/L (98-107); CREATININE 0.53 mg/dL (0.60-1.30); GLUCOSE 150.8 mg/dL (74-106); POTASSIUM 3.46 mmol/L (3.5-5.1); SODIUM 133.7 mmol/L (134.5-145); TOTAL PROTEIN 6.04 g/dL (6.3-8.2)
[2023-08-29 06:46] LABS: BASOPHILS % (AUTO) 0.1 % (0.0-3.0); HEMATOCRIT 30.1 % (37.0-47.0); HEMOGLOBIN 9.4 g/dl (12.0-16.0); IMMATURE GRANULOCYTE # (AUTO) 0.1 (0.0-1.0); IMMATURE GRANULOCYTE % (AUTO) 0.6 % (0.0-5.0); LYMPHOCYTES # (AUTO) 0.4 K/uL (0.60-3.4); LYMPHOCYTES % (AUTO) 3.1 (10.0-50.0); MEAN CORPUSCULAR HGB CONC 31.2 (31.8-35.4); MEAN CORPUSCULAR VOLUME 96.2 fl (81.0-99.0); MONOCYTES # (AUTO) 0.4 K/uL (0.4-2.0); NEUTROPHILS # (AUTO) 12.9 K/ul (2.0-6.9); NEUTROPHILS % (AUTO) 93.2 % (42.2-75.2); PLATELET COUNT 290 10^3/uL (140-440); RDW COEFFICIENT OF VARIATION 16.9 % (11.6-14.8); RED BLOOD COUNT 3.13 10^6/ul (4.20-5.40)
[2023-08-29 06:48] LABS: WHITE BLOOD COUNT 13.82 K/ul (4.6-10.2)
[2023-08-29] MEDS ORDERED: K-DUR PO ONE (08:30)
--- NOTE | 2023-08-29 08:54 | DCSUM ---
Admission Date Admission Date: 08/27/23 Discharge Date Discharge Date: 08/29/23 Admission Diagnosis Admission Diagnosis: 1. COPD Exacerbation 2. Symptomatic Hyponatremia 3. RA Discharge Diagnosis Discharge Diagnosis: 1. COPD Exacerbation - Improving 2. Symptomatic Hyponatremia - Improving 3. RA - Chronic, stable Hospital Provider Hospital Provider: EDEL GOEL, [facility] [place] Primary Care Physician Primary Care Physician: BROOKE CAGE Summary of History and Physical Summary of History and Physical: 73 yo female presented to the ER after visiting her PCP office for weakness. Patient states that she was treated for pneumonia approximately 1 week ago with levaquin and prednisone. Does not feel that it has helped. Has no energy and isn't breathing as well as she normally does. 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 Denies any fever, chills, N/V/D, chest pain. Hospital Course Subjective: Patient was admitted for COPD exacerbation following failure of outpatient erapy. She was treated with steroids, azithromycin and rocephin, and nebulizer treatments. Feeling much better today. Has maintained normal O2 sat on home 2L. Hyponatremia was treated with NS@100mL/hr. Increased from 129.3 to 133.7. Encouraged patient to salt food upon discharge due to this and continue to drink plenty of water. All home medications were continued and no changes were made. Appearance: Pleasant, No Apparent Distress and Alert HEENT: MMM and Supple CVS: No Murmur Abdomen: Soft and Non-Tender Respiratory: No Dyspnea Extremities: No Edema Vital Signs: Most Recent Vital Signs Temperature 97.6 F 08/29/23 05:18 Temperature Source Oral 08/28/23 21:16 Temperature Source Infrared 08/27/23 14:59 Pulse Rate 113 H 08/29/23 05:18 Respiratory Rate 18 08/29/23 05:18 Blood Pressure 124/70 08/29/23 05:18 Blood Pressure Mean 88 08/29/23 05:18 Blood Pressure Left Arm 150/80 08/27/23 20:32 Blood Pressure Location Right Arm 08/29/23 05:18 Blood Pressure Position Supine 08/29/23 05:18 O2 Sat by Pulse Oximetry 95 08/29/23 05:18 Oxygen Delivery Method Nasal Cannula 08/29/23 08:49 Oxygen Flow Rate 2 08/29/23 08:00 Fraction of Inspired Oxygen (FIO2) 2 08/27/23 20:32 Height 5 ft 2 in 08/27/23 20:32 Weight 150 lb 9 oz 08/27/23 20:32 Telemetry Type Remote Telemetry 08/29/23 06:59 Telemetry Monitoring Continues 08/29/23 06:59 Telemetry Heart Rate 94 08/29/23 06:59 Telemetry SPO2 94 08/29/23 06:59 EKG IA Interval 0.18 08/29/23 06:59 EKG QRS Interval 0.08 08/29/23 06:59 Telemetry Strip Reading NSR 08/29/23 06:59 Lab Results Last 24 Hours: 08/29/23 05:38 WBC 13.82 H D RBC 3.13 L Hgb 9.4 L Hct 30.1 L MCV 96.2 MCH 30.0 MCHC 31.2 L RDW Coeff of Carley 16.9 H Plt Count 290 Immature Gran % (Auto) 0.6 Neut % (Auto) 93.2 H Lymph % (Auto) 3.1 L [place] % (Auto) 3.0 Eos % (Auto) 0.0 Baso % (Auto) 0.1 Neut # (Auto) 12.9 H Lymph # (Auto) 0.4 L [place] # (Auto) 0.4 Eos # (Auto) 0.0 Baso # (Auto) 0.0 Immature Gran # (Auto) 0.1 Sodium 133.7 L Potassium 3.46 L Chloride 102.8 Carbon Dioxide 24.9 Anion Gap 9.46 BUN 7.6 Creatinine 0.53 L Estimated GFR (MDRD) 113.00 BUN/Creatinine Ratio 14.33 Glucose 150.8 H Calcium 8.15 L Total Bilirubin 0.20 AST 17.2 ALT 13.6 Alkaline Phosphatase 74.2 Total Protein 6.04 L Albumin 3.13 L Globulin 2.91 Albumin/Globulin Ratio 1.07 Discharge Instructions Discharge Planning: Discharge Planning > 40 minutes If patient is discharged with left ventricular systolic dysfunction: NA Discharged with a beta tracey? [] If no, why not? [] Discharged with an josie/arb? [] If no, why not? [] DX: COPD Exacerbation, CAP, HYPONATREMIA Regular diet, extra salt Activity as tolerated Follow-up with PCP next week. New Medications: Keflex 500 mg twice a day x 8 days Medrol dose pack as directed until completed Albuterol nebulizer treatment every 4-6 hours until resolution of COPD exacerbation/pneumonia - then return to twice a day Discharge Medications: Medications at Discharge (Home Meds & RX) folic acid 1 mg tablet 1 mg PO DAILY 11/10/14 methotrexate sodium 2.5 mg tablet 2.5 mg PO 8 pills once a week 11/10/14 amitriptyline 10 mg tablet 25 mg PO BEDTIME 05/14/16 gabapentin 300 mg capsule 300 mg PO TID PRN Pain 05/14/16 omeprazole 20 mg capsule,delayed release 20 mg PO BID 08/05/16 leflunomide 10 mg tablet 10 mg PO DAILY 11/01/19 acetaminophen 500 mg tablet 500 mg PO Q4H PRN Pain 05/29/20 albuterol sulfate 2.5 mg/3 mL (0.083 %) solution for nebulization 2.5 mg inhalation BID 05/29/20 albuterol sulfate 90 mcg/actuation aerosol inhaler (Ventolin HFA) 2 puff inh alation PRN PRN shortness of air 05/29/20 docusate sodium 100 mg capsule (Stool Softener) 100 mg PO DAILY PRN Constipation 05/29/20 albuterol sulfate 90 mcg/actuation aerosol inhaler (Ventolin HFA) 2 puff inhalation Q4-6H PRN shortness of breath or wheezing #8.5 grams 07/04/20 azelastine 137 mcg (0.1 %) nasal spray aerosol 1 spray intranasal Q12H 03/27/23 celecoxib 100 mg capsule 100 mg PO DAILY 08/27/23 albuterol sulfate 1.25 mg/3 mL solution for nebulization 1.25 mg (3 mL) inhalation Q4-6H #90 mL 08/29/23 cephalexin 500 mg tablet 500 mg PO BID #16 tabs 08/29/23 methylprednisolone 4 mg tablets in a dose pack (Medrol (Geo)) See Rx Instructions PO .COMPLEX #21 ea 08/29/23 Discharge Plan Discharge Discharge Orders: Discharge Patient (ONCE); Ordered 08/29/23 Ordered By: ALPESH HERNANDEZ Activity Restrictions/Additional Instructions: Regular diet, extra salt Activity as tolerated Follow-up with PCP next week. New Medications: Keflex 500 mg twice a day x 8 days Medrol dose pack as directed until completed Albuterol nebulizer treatment every 4-6 hours until resolution of COPD exacerbation/pneumonia - then return to twice a day Instructions: COPD (Chronic Obstructive Pulmonary Disease) (GEN), Community Acquired Pneumonia (GEN) Patient Disposition: HOME WITH FAMILY CARE Prescriptions: New albuterol sulfate 1.25 mg/3 mL solution for nebulization 1.25 mg inhalation Q4-6H Qty: 90 0RF cephalexin 500 mg tablet 500 mg PO BID Qty: 16 0RF methylprednisolone [Medrol (Geo)] 4 mg tablets,dose pack See Rx Instructions .ROUTE .COMPLEX Qty: 21 0RF Rx Instructions: orally per package directions Continued methotrexate sodium 2.5 MG tablet 2.5 mg PO 8 pills once a week Patient Comments: on Fridays folic acid 1 MG tablet 1 mg PO DAILY amitriptyline 10 MG tablet 25 mg PO BEDTIME gabapentin 300 MG capsule 300 mg PO TID PRN (Reason: Pain) celecoxib 100 mg capsule 100 mg PO DAILY omeprazole 20 MG capsule,delayed release(DR/EC) 20 mg PO BID leflunomide 10 mg Tablet 10 mg PO DAILY albuterol sulfate 2.5 mg /3 mL (0.083 %) Solution For Nebulization 2.5 mg INHALATION BID acetaminophen 500 mg Tablet 500 mg PO Q4H MDD \ PRN (Reason: Pain) docusate sodium [Stool Softener] 100 mg Capsule 100 mg PO DAILY PRN (Reason: Constipation) albuterol sulfate [Ventolin HFA] 90 mcg/actuation Hfa Aerosol Inhaler 2 puff INHALATION PRN PRN (Reason: shortness of air) albuterol sulfate [Ventolin HFA] 90 mcg/actuation HFA aerosol inhaler 2 puff inhalation Q4-6H PRN (Reason: shortness of breath or wheezing) Qty: 8.5 0RF azelastine 137 mcg (0.1 %) aerosol,spray 1 spray INTRANASAL Q12H Did you review [place] [employer] for ALL controlled substances?: No Discussed opioids are addictive and Narcan is available by prescription or from pharmacy.: No Condition: Stable
[2023-08-29] MEDS: ARAVA PO SCH (09:03)
[2023-08-29] MEDS: SODIUM CHLORIDE 1,000 ML IV SCH (09:03)
[2023-08-29] MEDS: ROCEPHIN 1 GM/50 ML D5W 1 GM/50 ML BAG IV SCH (09:03)
[2023-08-29] MEDS: CELEBREX PO SCH (09:04)
[2023-08-29] MEDS: FOLIC ACID PO SCH (09:04)
[2023-08-29] MEDS: ASTELIN 0.1% NAS SCH (09:09)
[2023-08-29] MEDS: ZITHROMAX 500 MG in SODIUM CHLORIDE 250 ML IV SCH (09:51)
== END 2023-08-29 12:45 | disposition home or self-care (01) ==
LOC: ED 14:58 → MEDSURG B 14:58
PROVIDERS: ADMIT Hospitalist; ATTEND Nurse Practitioner Family
DX: J18.9 Pneumonia, unspecified organism; Z51.81 Encounter for therapeutic drug level monitoring; M06.9 Rheumatoid arthritis, unspecified; E87.1 Hypo-osmolality and hyponatremia; R06.02 Shortness of breath; R53.1 Weakness; J44.0 Chronic obstructive pulmonary disease with (acute) lower respiratory infection; Z79.899 Other long term (current) drug therapy; J44.1 Chronic obstructive pulmonary disease with (acute) exacerbation; Z99.81 Dependence on supplemental oxygen; Z20.822 Contact with and (suspected) exposure to COVID-19